=== PATIENT | female | born 1990 | race Two or more races ===

== ENCOUNTER 2024-10-20 19:40 | Emergency (ER) | payer MEDICAID, SELFPAY ==
[2024-10-20 19:40] VITALS: BMI 42.3
[2024-10-20 19:59] VITALS: BP 132/71; PULSE 114; RESP 20; TEMP 38.6; O2SAT 96
--- NOTE | 2024-10-20 20:16 | EDNOTE_ITS ---
Upper Respiratory Inf. RME/HPI General Chief Complaint: Fever Stated Complaint: FEVER/ COUGH X 2DAYS Time Seen by Provider: 10/20/24 19:51 Source: patient Arrival date/time: 10/20/24 19:40 33-year-old female presents emergency department complaining of fever and cough for 2 days. Mother reports sick contacts at home with similar symptoms. Mode of arrival: ambulatory Limitations: no limitations Related Data Home Medications ?Medication ?Instructions ?Recorded ?Confirmed [id number] 1 mg 1 tab PO 1XD 06/30/22 08/05/22 tablet ascorbic acid (vitamin C) 500 mg 500 mg PO 1XD 2 08/05/22 tablet (Vitamin C) ferrous sulfate 325 mg (65 mg 325 mg PO 1XD 08/05/22 1 10/06/21 iron) tablet Previous Rx's ?Medication ?Instructions ?Recorded acetaminophen 500 mg capsule 500 mg PO Q6H PRN pain #3 0 caps 10/20/24 ibuprofen 600 mg tablet 600 mg PO Q8H PRN pain #20 t abs 10/20/24 Allergies Allergy/AdvReac Type Severity Reaction Status Date / Time No Known Allergies Allergy Verified 07/09/23 05:32 Review of Systems Review of Systems Systems Reviewed: All systems reviewed, normal except as documented Constitutional Constitutional: Reports system reviewed and no additional complaints, except as documented, Denies body ache(s), Denies chills and Reports fever(s) Eyes Eyes: Reports system reviewed and no additional complaints, except as documented and Denies change in vision ENT Ears, Nose, Mouth, and Throat: Reports system reviewed and no additional complaints, except as documented, Denies disequilibrium, Denies dizziness, Denies sore throat and Denies vertigo Cardiovascular Cardiovascular: Reports system reviewed and no additional complaints, except as documented, Denies chest pain and Denies dyspnea Respiratory Respiratory: Reports system reviewed and no additional complaints, except as documented, Denies chest congestion, Reports cough and Denies dyspnea Gastrointestinal Gastrointestinal: Reports system reviewed and no additional complaints, except as documented, Denies abdominal pain, Denies nausea and Denies vomiting Musculoskeletal Musculoskeletal: Reports system reviewed and no additional complaints, except as documented, Denies abnormal gait and Denies arthralgias Integumentary/Breasts Skin/Breast: Reports system reviewed and no additional complaints, except as documented, Denies erythema, Denies rash and Denies wounds Neurologic Neurologic: Reports system reviewed and no additional complaints, except as documented, Denies abnormal gait, Denies disequilibrium, Denies dizziness and Denies vertigo Past Medical History Past Medical History NEUROLOGIC: Negative Neurological Disorders CARDIAC: Negative Cardiac Disorders or Congestive Heart Failure RESPIRATORY: Negative Chronic Obstructive Pulmonary Disease (COPD) GASTROINTESTINAL: Negative Gastrointestinal Disorders GENITOURINARY: Negative Genitourinary Disorders or Renal Disease MUSCULOSKELETAL: Negative Musculoskeletal Disorders ENDOCRINE: Positive Endocrine Disorders; Negative Diabetes Mellitus Type 1, Diabetes Mellitus Type 2, Hypoglycemia, Jovanna's Syndrome, Prospect's Disease, Hyperthyroidism, Hypothyroidism, Parathyroid Disease, Pituitary Disease, Systemic Lupus Erythematosus, Syndrome of Inappropriate Antidiuretic Hormone (SIADH), Adrenal Disease or Graves' Disease HEMATOLOGIC: Positive Blood Disorders and Anemia; Negative Leukemia, Hemophilia, Thalassemia, Sickle Cell Disease or Clotting Problems OTHER HISTORY: Negative Hospitalization, Autoimmune Disease, Down Syndrome, Developmental Delay or Falls Family History FAMILY HISTORY: Positive Family Cancer (panceratic cancer father); Negative Family Psychiatric Problems, Family Respiratory Disorders, Family Cardiac Disorders, Family Gastrointestinal Problems, Family Surgery (appendectomy) or Family Anesthesia Reaction Surgical History SURGICAL: Negative Section Social History SMOKING STATUS: Never smoker SUBSTANCE USE: does not use ED Exam General Limitations: Present no limitations General appearance: Present alert and in no apparent distress Head Head exam: Present atraumatic Eye Eye exam: Present normal appearance, PERRL and EOMI ENT ENT exam: Present normal exam, normal oropharynx and mucous membranes moist Neck Neck exam: Present normal inspection, full ROM and trachea midline Chest Chest inspection: Present normal inspection and symmetric chest wall rise Respiratory Respiratory exam: Present normal lung sounds bilaterally Cardiovascular Cardiovascular exam: Present regular rate, normal rhythm and normal heart sounds Abdominal Exam Abdominal exam: Present soft and normal bowel sounds Extremities Exam Extremities exam: Present normal inspection and full ROM Back Exam Back exam: Present normal inspection and full ROM Neurological Exam Neurological exam: Present alert, oriented X3 and CN II-XII intact Psychiatric Psychiatric exam: Present normal affect and normal mood Skin Skin exam: Present warm, dry, intact and normal color Course Quality Measures none Orders Category Date Time Status Bedside COVID-19 Antigen Test NOW Care 10/20/24 20:15 Completed Bedside Influenza A&B Antigen Test NOW Care 10/20/24 20:15 Completed Strep A Rapid Stat Lab 10/20/24 20:18 Completed Acetaminophen Tab [Tylenol ES Tab] Med 10/20/24 20:15 Discontinued 1,000 mg PO X1 ONE Ibuprofen Tab [Motrin Tab] Med 10/20/24 20:15 Discontinued 800 mg PO X1 ONE Vital Signs Vital signs: Vital Signs Temperature 101.4 F H 10/20/24 19:59 Pulse Rate 114 H 10/20/24 19:59 Respiratory Rate 20 10/20/24 19:59 Blood Pressure 132/71 H 10/20/24 19:59 Pulse Oximetry (%) 96 10/20/24 19:59 Oxygen Delivery Method Room Air 10/20/24 19:59 96% room air within normal limits Upper Respiratory Infection MDM Narrative MDM Narrative:: 33-year-old female presents emergency department complaining of fever and cough for 2 days. Mother reports sick contacts at home with similar symptoms. No adventitious lung sounds on auscultation. Patient appears nontoxic hemodynamic stable. Strep and influenza swabs negative. Patient given antipyretics for fever. Patient presents emergency department with also her daughter who tested positive for RSV patient likely also has RSV but was not swabbed for it. Patient stable for discharge. Patient data External records reviewed:: [facility] previous records Clinical information provided by:: patient Social determinants that could affect healthcare access:: none Patient has the following chronic illnesses:: See chart How is presenting disease/condition affected by chronic disease/condition?: uneffected by Evaluation data The following diagnostics were reviewed and interpreted by me:: lab results Lab and/or radiology exams considered but not ordered:: Ordered Interpretation Summary: Interpreted by me Medications / Prescriptions Medications or Prescriptions considered but not ordered:: Ordered Medication administrations:: Medication Administration History Discontinued Medications Acetaminophen (Acetaminophen 500 Mg Tablet) 1,000 mg PO X1 ONE Stop: 10/20/24 20:16 Last Admin: 10/20/24 20:24 Dose: 1,000 mg Documented By: KG Ibuprofen (Ibuprofen Tab 400 Mg Tablet) 800 mg PO X1 ONE Stop: 10/20/24 20:16 Last Admin: 10/20/24 20:25 Dose: 800 mg Documented By: KG Given Consultations Consultation(s) initiated? (list below): No Diagnosis Upper Respiratory Differential Diagnosis: upper respiratory infection, otitis media, sinusitis, viral infection, bronchitis, influenza and pharyngitis Most likely diagnosis given after review of the tests above:: Viral infection Admission Indicated Admission indicated?: not indicated Admission Request Was there a request for admission?: No Disposition Plan Disposition Plan: Discharge Discharge Attestation Discharge Attestation: The patient and all family members were given an opportunity to ask questions and understood the discharge instructions. Discharge instructions specifically effects, indications for sooner follow up or return to the emergency department, and the expected course of current diagnosis. Patient condition: Stable Discharge Plan Plan Patient Disposition: HOME (Self Care) Disposition Comment: Stable Prescriptions/Referrals Prescriptions/Med Rec: New ibuprofen 600 mg tablet 600 mg PO Q8H PRN (Reason: pain) Qty: 20 0RF acetaminophen 500 mg capsule 500 mg PO Q6H PRN (Reason: pain) Qty: 30 0RF No Action ascorbic acid (vitamin C) [Vitamin C] 500 mg tablet 500 mg PO 1XD Patient Comments: TAKE 1 TABLET BY MOUTH TWICE A DAY FOR 30 DAYS ferrous sulfate 325 mg (65 mg iron) tablet 325 mg PO 1XD Patient Comments: TAKE 1 TABLET BY MOUTH TWICE A DAY 1 1 mg Tablet 1 tab PO 1XD Referrals: Temporary Provider,ED [Physician] - In 1 week Problem List Clinical Impression: Viral infection Patient/Caregiver Discharge Instructions Discharge Activity: activity as tolerated Education Materials: ED Viral Syndrome (Adult) Additional Instructions: Drink plenty of fluids and get plenty of rest. Take Tylenol or ibuprofen as needed for fever or pain. Follow-up with primary care provider in 2 to 3 days. Return to emergency department for any worsening symptoms or as needed. Print Language: Khmer Stand Alone Forms: Kelly Award Info., Patient Portal Info Letter PA/SOTO Supervising Physician TONYA/SOTO Supervising Physician: Dr. Sherwood
[2024-10-20 20:24] VITALS: TEMP 38.6
[2024-10-20] MEDS: ACETAMINOPHEN 500 MG TABLET 1000 MG PO (20:24)
[2024-10-20 20:25] VITALS: TEMP 38.6
[2024-10-20] MEDS: IBUPROFEN TAB 400 MG TABLET 800 MG PO (20:25)
[2024-10-20 21:17] LABS: Strep A Rapid Negative (Negative)
[2024-10-20 21:56] VITALS: BP 129/84; PULSE 113; RESP 20; TEMP 37.2; O2SAT 98
== END 2024-10-20 23:01 | disposition home or self-care (01) ==
PROVIDERS: Emergency Provider Emergency Medicine
DX: B34.9 Viral infection, unspecified (principal)
CPT/HCPCS: 87400; 87651; 87811; 99283; A9270